=== PATIENT | male | born 1965 | race Caucasian/White ===

== ENCOUNTER 2017-02-26 08:55 | Emergency (ER) | payer OTHER ==
[~2017-02-26] VITALS: Ht 182.9 cm; Wt 91.3 kg
[2017-02-26] MEDS ORDERED: PREDNISONE10 MG PO (10:48)
[2017-02-26 11:12] VITALS: BP 154/92
== END 2017-02-26 11:13 | disposition home or self-care (01) ==
LOC: EME 08:55
DX: M54.5 Low back pain (principal); M79.604 Pain in right leg
CPT/HCPCS: 99281; 99283; J1100